=== PATIENT | female | born 1980 | race Caucasian/White ===

== ENCOUNTER 2021-05-13 14:57 | Outpatient (CLI) | payer MEDICAID | END 2021-05-13 14:58 | disposition home or self-care (01) | LOC: CSHULT 14:57 | PROVIDERS: ATTEND Nurse Practitioner Family | DX: R10.2 Pelvic and perineal pain (principal) | CPT/HCPCS: 76856 ==

== ENCOUNTER 2021-05-22 19:05 | Emergency (ER) | payer MEDICAID ==
[2021-05-22 20:01] LABS: Bilirubin Neg (Negative); Blood, Urine 250 (Negative); Clarity Clear (Clear); Glucose, Urine (Dipstick) 50 mg/dL (Negative); Ketone, Urine 5 mg/dL (Negative); Leukocyte 100 (Negative); Nitrite Negative (Negative); Protein, Urine (Dipstick) 100 mg/dl (Neg-Trace); Specific Gravity, Urine 1.025 (1.002-1.036); Urobilinogen Normal mg/dL (Less than 2)
[2021-05-22 20:22] LABS: Bacteria/HPF 1+ HPF (None Seen); RBC/HPF Greater than 50 HPF (0-3); WBC/HPF 21-50 HPF (0-3)
[2021-05-22 22:05] LABS: #Basophils 0.1 10x3/uL (0.0-0.2); #Eosinphils 0.4 10x3/uL (0.0-0.5); #Monocytes 1.1 10x3/uL (0.0-1.1); #Neutrophils 9.9 10x3/uL (1.5-8.4); %Basophils 0.6 % (0.0-2.0); %Eosinophils 2.3 % (0.0-6.0); %Lymphocytes 34.9 % (18.0-47.0); %Monocytes 5.9 % (0.0-10.0); %Neutrophils 55.6 % (40.0-75.0); Hemoglobin 15.6 g/dL (12.0-15.5); Mean Corpuscular HGB CONC 33.3 g/dL (32.0-36.0); Mean Corpuscular Hemoglobin 28.3 pg (27.0-33.0); Mean Corpuscular Volume 85.1 fl (81.6-98.3); Mean Platelet Volume 10.3 fl (7.4-10.4); Platelet Count 343 10x3/uL (150-450); RBC Distribution Width 14.2 % (11.5-14.5); Red Blood Cell (RBC) Count 5.51 10x6/uL (3.90-5.03); White Blood Cell (WBC) Count 17.8 10x3/uL (3.5-10.5)
[2021-05-22 22:21] LABS: ALT (SGPT) 57 U/L (8-55); AST (SGOT) 33 U/L (5-34); Albumin 4.2 g/dL (3.5-5.0); Alkaline Phosphatase 136 U/L (40-110); Anion Gap 16 mmol/L (10-20); BUN (Urea Nitrogen) 13 mg/dL (7.0-18.7); Bilirubin, Total 0.3 mg/dL (0.2-1.2); Calc. Creatinine Clearance 0 mL/min (70-130); Calcium 10.2 mg/dL (7.8-10.44); Carbon Dioxide 24 mmol/L (22-29); Chloride 103 mmol/L (98-107); Globulin 3.1 g/dL (2.4-3.5); Glucose 175 mg/dL (70-105); Potassium 4.2 mmol/L (3.5-5.1); Protein, Total 7.3 g/dL (6.0-8.3); Sodium 139 mmol/L (136-145)
[2021-05-23] MEDS ORDERED: cefTRIAXone\\ROCEPHIN 1 GM VIAL ONE (00:12)
[2021-05-23] MEDS ORDERED: Ketorolac Tromethamine 30 MG/ML VIAL ONE (00:12)
[2021-05-23] MEDS ORDERED: Ondansetron PF 4 MG/2 ML Vial ONE (00:22)
== END 2021-05-23 01:50 | disposition home or self-care (01) ==
LOC: CSHERS 19:05
DX: N20.0 Calculus of kidney (principal); K80.20 Calculus of gallbladder without cholecystitis without obstruction; N39.0 Urinary tract infection, site not specified; E11.9 Type 2 diabetes mellitus without complications; F17.210 Nicotine dependence, cigarettes, uncomplicated
CPT/HCPCS: 36415; 74177; 80053; 81003; 81015; 83605; 83690; 85025; 87086; 96372; 96374; 96375; J0500; J0696; J1885; J2405

== ENCOUNTER 2022-02-04 18:44 | Emergency (ER) | payer MEDICAID, SELFPAY | END 2022-02-04 21:07 | disposition home or self-care (01) | LOC: CSHERS 18:44 | DX: M71.21 Synovial cyst of popliteal space [Baker], right knee (principal); L02.425 Furuncle of right lower limb; E11.9 Type 2 diabetes mellitus without complications; F17.210 Nicotine dependence, cigarettes, uncomplicated; Z85.42 Personal history of malignant neoplasm of other parts of uterus ==

== ENCOUNTER 2022-02-25 11:00 | Emergency (ER) | payer SELFPAY | END 2022-02-25 13:12 | disposition home or self-care (01) | LOC: CSHERS 11:00 | DX: J32.9 Chronic sinusitis, unspecified (principal); J34.0 Abscess, furuncle and carbuncle of nose; K11.20 Sialoadenitis, unspecified; E11.9 Type 2 diabetes mellitus without complications; F17.210 Nicotine dependence, cigarettes, uncomplicated | CPT/HCPCS: 99283 ==

== ENCOUNTER 2022-03-23 13:18 | Emergency (ER) | payer MEDICAID, SELFPAY ==
[2022-03-23] MEDS ORDERED: Ketorolac Tromethamine 30 MG/ML VIAL ONE (14:39)
== END 2022-03-23 15:53 | disposition home or self-care (01) ==
LOC: CSHERS 13:18
DX: M25.512 Pain in left shoulder (principal); F17.210 Nicotine dependence, cigarettes, uncomplicated; E11.9 Type 2 diabetes mellitus without complications
CPT/HCPCS: 96372; J1885

== ENCOUNTER 2022-04-05 14:26 | Outpatient (CLI) | payer MEDICAID | END 2022-04-05 14:27 | disposition home or self-care (01) | LOC: CSHMAMMO 14:26 | PROVIDERS: ATTEND Family Medicine | DX: Z12.31 Encounter for screening mammogram for malignant neoplasm of breast (principal) | CPT/HCPCS: 77067 ==